=== PATIENT | male | born 1995 | race African-American/Black ===

== ENCOUNTER 2017-02-06 10:42 | Emergency (ER) | payer OTHER ==
[2017-02-06 10:49] VITALS: BP 118/55; PULSE 66; TEMP 98.5; BMI 22.3
[2017-02-06 11:15] LABS: URINE APPEARANCE SLCLOUDY; URINE BILIRUBIN NEGATIVE (NEGATIVE); URINE BLOOD NEGATIVE (NEGATIVE); URINE COLOR YELLOW; URINE GLUCOSE (UA) NEGATIVE (NEGATIVE); URINE KETONE NEGATIVE (NEGATIVE); URINE LEUK ESTERASE TRACE (NEGATIVE); URINE NITRITE NEGATIVE (NEGATIVE); URINE PROTEIN NEGATIVE (NEGATIVE); URINE UROBILINOGEN NEGATIVE mg/dL (0.2-1.0)
[2017-02-06 11:20] LABS: URINE MUCUS RARE; URINE RBC 1 /hpf (0-3); URINE WBC 5 /hpf (3-5)
[2017-02-06] MEDS ORDERED: AZITHROMYCIN 1 GM PACKET PO ONE (11:43)
[2017-02-06] MEDS ORDERED: AZITHROMYCIN 1 GM PACKET ONE (11:45)
--- NOTE | 2017-02-06 11:49 | PDOC ---
History of Present Illness - General Chief Complaint: Pain Stated Complaint: STD TESTING Time Seen by Provider: 02/06/17 11:05 History Source: Patient Exam Limitations: No Limitations - History of Present Illness Travel History: No Initial Comments: 02/06/17 11:43 22 yr male presents stating his girlfriend told him she has ghonorrhea dn pt is here to be tested. O denies any urianry complaints, no history of STD in the past. Last hiv test one month ago was negative states pt. Past History - Past Medical History Allergies/Adverse Reactions: Allergies Allergy/AdvReac Type Severity Reaction Status Date / Time No Known Allergies Allergy Verified 02/06/17 10:45 Home Medications: Ambulatory Orders NK [No Known Home Medication] 02/06/17 Other medical history: none - Surgical History Abdominal Surgery: Yes (umbalical hernia) - Psycho/Social/Smoking Cessation Hx Anxiety: No Suicidal Ideation: No Smoking History: Never smoked Have you smoked in the past 12 months: No Information on smoking cessation initiated: No Hx Alcohol Use: No Drug/Substance Use Hx: No Substance Use Type: None *Physical Exam - Vital Signs Last Vital Signs Temp Pulse Resp BP Pulse Ox 98.5 F 66 18 118/55 100 02/06/17 10:45 02/06/17 10:45 02/06/17 10:45 02/06/17 10:45 02/06/17 10:45 - Physical Exam General Appearance: Yes: Nourished, Appropriately Dressed HEENT: positive: EOMI, DIONE Neck: positive: Supple Respiratory/Chest: positive: Lungs Clear, Normal Breath Sounds. negative: Chest Tender Cardiovascular: positive: Regular Rhythm, Regular Rate Gastrointestinal/Abdominal: positive: Normal Bowel Sounds, Soft. negative: Tender Male Genitalia: positive: normal genitalia. negative: discharge, testicular tenderness, testicular mass, epididymus tender, inguinal hernia, hematuria Musculoskeletal: positive: Normal Inspection Extremity: positive: Normal Inspection, Normal Range of Motion Integumentary: positive: Normal Color, Dry, Warm Neurologic: positive: senior engineering specialist II-XII NML intact, Fully Oriented, Alert, Normal Mood/ Affect, Normal Response, Motor Strength 5/5 ED Treatment Course - ADDITIONAL ORDERS Additional order review: Laboratory Results 02/06/17 11:10 Urine Color Yellow Urine Appearance Slcloudy Urine pH 5.0 Urine Protein Negative Urine Glucose (UA) Negative Urine Ketones Negative Urine Blood Negative Urine Nitrite Negative Urine Bilirubin Negative Urine Urobilinogen Negative Urine RBC 1 Urine WBC 5 Ur Epithelial Cells Rare Urine Mucus Rare Medical Decision Making - Medical Decision Making 02/06/17 11:52 cc: exposed to gonorrhea will treat for GC and chlamydia pt has no symptoms follow up with [facility] in 3 months for repeat HIV last one month ago and negative. *DC/Admit/Observation/Transfer Diagnosis at time of Disposition: STD exposure - Referrals Referrals: Abner Bean MD [Staff Physician] - - Patient Instructions Additional Instructions: always use condoms to prevent spreading of STD's no sexual activity for one week follow at [facility] in 3 months for a repeat HIV test follow with the urologist if any symptoms of urinary pain burning or discharge
== END 2017-02-06 11:52 | disposition home or self-care (01) ==
LOC: JERFT 10:42
DX: Z20.2 Contact with and (suspected) exposure to infections with a predominantly sexual mode of transmission (principal)
CPT/HCPCS: 36415; 81003; 81015; 87491; 87591; 96372; 99281-25

== ENCOUNTER 2020-10-12 17:42 | Emergency (ER) | payer SELFPAY ==
[2020-10-12 17:46] VITALS: BP 123/63; PULSE 80; TEMP 97; BMI 19.5
[2020-10-12] MEDS ORDERED: IBUPROFEN 600 MG TABLET (FP) PO ONE ×2 (17:48→17:50)
== END 2020-10-12 18:58 | disposition home or self-care (01) ==
LOC: JERFT 17:42
DX: M25.572 Pain in left ankle and joints of left foot (principal)
CPT/HCPCS: 73610-TC-LT-FY; 73630-TC-LT; 99283-25